=== PATIENT | male | born 2005 | race Hispanic/Latino ===

== ENCOUNTER 2024-03-12 23:52 | Emergency (ER) | payer SELFPAY ==
[~2024-03-12] VITALS: Ht 172.7 cm; Wt 65.8 kg
[2024-03-12 23:56] VITALS: TEMP 98.2
[2024-03-13] MEDS ORDERED: PREDNISONE 20 MG TAB ONE (00:01)
[2024-03-13] MEDS ORDERED: DIPHENHYDRAMINE HCL 25 MG CAP ONE (00:04)
[2024-03-13] MEDS: PREDNISONE 20 MG TAB PO SCH (00:06)
[2024-03-13] MEDS: FAMOTIDINE 20 MG TAB PO ONE (00:06)
[2024-03-13] MEDS: DIPHENHYDRAMINE HCL 25 MG CAP PO STA (00:07)
[2024-03-13 01:00] VITALS: PULSE 68; RESP 18; O2SAT 99
[2024-03-13] MEDS ORDERED: PREDNISONE20 MG PO (01:06)
[2024-03-13] MEDS ORDERED: PEPCID20 MG PO (01:06)
== END 2024-03-13 01:16 | disposition home or self-care (01) ==
LOC: ER 23:58
DX: L50.9 Urticaria, unspecified (principal)
CPT/HCPCS: 99283; J7512